=== PATIENT | male | born 2000 | race Caucasian/White ===

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

== ENCOUNTER 2020-06-01 14:03 | Outpatient (CLI) | payer BC, SELFPAY ==
--- NOTE | 2020-06-01 14:13 | XR_ITS ---
WS: [id number] KUB, AP view, 06/01/2020 Clinical Data: GENERALIZED ABDOMINAL PAIN Comparison: None. Findings: No abnormal intraabdominal masses or calcifications are seen. There is no dilatated small bowel or ev idence of obstruction. XR/XR KUB [id number] Impression: Negative KUB.
== END 2020-06-01 14:04 | disposition home or self-care (01) ==
PROVIDERS: PCP Family Medicine; Visit Provider Family Medicine
DX: R10.84 Generalized abdominal pain (principal)
CPT/HCPCS: 74018